=== PATIENT | male | born 2000 | race Caucasian/White ===

== ENCOUNTER 2021-11-25 13:39 | Emergency (ER) | payer OTHER, SELFPAY ==
--- NOTE | 2021-11-25 13:46 | ED.NAVMDI ---
HPI - Nausea/Vomiting/Diarrhea General Chief complaint: Upper Respiratory Infection Stated complaint: nausea Time Seen by Provider: 11/25/21 13:50 Source: patient Mode of arrival: ambulatory Limitations: no limitations History of Present Illness HPI Narrative: Hammad is a 20-year-old male patient presenting to the clinic today with his mother. He reports that he has nausea and headache that began today. He also reports that he has some throat pain. His temperature is 38 ?C in the clinic today with a heart rate of 109. His mother said he was sent home from school today and she tested him at home using an at home COVID test and it was faintly positive. MD elicited complaint: nausea, vomiting and other (Fever, headache) Related Data Allergies Allergy/AdvReac Type Severity Reaction Status Date / Time No Known Allergies Allergy Verified 11/25/21 13:56 Review of Systems Review of Systems: Pertinent positives per HPI. Patient denies any fever, chills, rash, headache, visual changes, dizziness, cough, runny nose, sore throat, shortness of breath, chest pain, palpitations, nausea, vomiting, diarrhea, constipation, abdominal pain, or any urinary issues. PMFSH Comments At the time of my signature, I reviewed and agree with the nursing past medical, surgical, social, and family history. There is no relevant family history pertinent to the patient complaint. Exam Narrative: General: Well-developed, well nourished, in no apparent distress Head: Normocephalic, atraumatic Eyes: Pupils equally round and reactive to light bilaterally, EOM intact, sclera and conjunctive clear, no discharge, lids normal Ears: TMs intact and clear, ear canals clear, no drainage, grossly hearing normal. Nose: Nares patent, clear nasal discharge, no inflammation, no sinus tenderness. Mouth: Oropharynx without lesions or masses, good dentition, MMM. Oropharynx red Neck: Supple, trachea midline, no enlargement of anterior or posterior cervical nodes, no thyroid masses or goiter palpable. Cardio: Regular rate and rhythm, s1 and s2 normal, no murmur appreciated. Resp: Clear to auscultation bilaterally anteriorly and posteriorly, no rhonchi, rales, wheezing or rubs Course Course Emergency Course: Portions of this record may have been created with voice recognition software. Level of Care: Express Care Visit Vital Signs Vital signs: Vital Signs Temperature 38.0 C H 11/25/21 13:47 Pulse Rate 109 H 11/25/21 13:47 Respiratory Rate 20 11/25/21 13:47 Blood Pressure 121/50 L 11/25/21 13:47 Pulse Oximetry 100 11/25/21 13:47 Temperature 38.0 C H 11/25/21 13:47 Pulse Rate 109 H 11/25/21 13:47 Respiratory Rate 20 11/25/21 13:47 Blood Pressure 121/50 L 11/25/21 13:47 Pulse Oximetry 100 11/25/21 13:47 Vital signs reviewed MDM - Nausea/Vomiting/Diarrhea MDM Narrative Medical decision making narrative: At the time of assessment patient is resting comfortably in the exam chair. Reports fever, chills, sore throat, headache, and nausea with vomiting. COVID testing and strep testing completed in the clinic. COVID test was negative and strep testing was positive. I will give him a course of amoxicillin as well as some Zofran for nausea. Supportive measures were discussed with mother and she voiced understanding of discharge instructions and agrees with treatment plan. Lab Data Labs: Lab Results 11/25/21 Range/Units Unknown POC SARS CoV-2 Ag Negative (Negative) Strep Screen Positive Group A Strep *(Reference Range: Negative)* Discharge Plan Discharge Clinical Impression: Strep pharyngitis Patient Disposition: Home, Self-Care Condition: Stable Instructions: Strep Throat (ED) Additional Instructions: COVID and strep testing completed in the clinic today COVID testing was negative and strep testing was positive in the clinic Amoxicillin and Zofran
[2021-11-25 13:47] VITALS: BP 121/50; PULSE 109; RESP 20; TEMP 38; O2SAT 100
--- NOTE | 2021-11-25 14:10 | PC.NURSE ---
Pt vomiting green bile after strep swab. PT SKILLED aware.
== END 2021-11-25 14:39 | disposition home or self-care (01) ==
PROVIDERS: Emergency Provider Nurse Practitioner Family; PCP Nurse Practitioner Family
DX: J02.0 Streptococcal pharyngitis (principal); Z20.822 Contact with and (suspected) exposure to COVID-19; R62.50 Unspecified lack of expected normal physiological development in childhood
CPT/HCPCS: 87426; 87880; 99203; C9803; G0463